=== PATIENT | female | born 1970 | race Two or more races ===

== ENCOUNTER 2021-04-16 09:09 | Emergency (ER) | payer SELFPAY ==
[~2021-04-16] VITALS: Ht 154.9 cm; Wt 59.0 kg
[2021-04-16 09:11] VITALS: BP 158/62
--- NOTE | 2021-04-16 09:34 | NUR ---
1ST CALL [id number]
== END 2021-04-16 11:47 | disposition home or self-care (01) ==
LOC: EDBD 09:09 → ED 11:35
DX: H66.91 Otitis media, unspecified, right ear (principal); H72.91 Unspecified perforation of tympanic membrane, right ear
CPT/HCPCS: 99283